=== PATIENT | male | born 1950 | race African-American/Black ===

== ENCOUNTER 2020-04-30 05:00 | Day surgery (SDC) | payer MEDICARE, OTHER ==
[2020-04-25 14:57] VITALS: BMI 30.4
[2020-04-30 09:47] VITALS: TEMP 97.8
[2020-04-30 11:15] VITALS: BP 124/63; PULSE 63
== END 2020-04-30 11:15 | disposition home or self-care (01) ==
LOC: JASU-ENDO 05:00
PROVIDERS: ATTEND Internal Medicine Gastroenterology
PROC: 0DJD8ZZ Inspection of Lower Intestinal Tract, Via Natural or Artificial Opening Endoscopic (ICD-10-PCS; principal; 2020-04-30 08:45)
DX: Z12.11 Encounter for screening for malignant neoplasm of colon (principal); K57.30 Diverticulosis of large intestine without perforation or abscess without bleeding; I12.9 Hypertensive chronic kidney disease with stage 1 through stage 4 chronic kidney disease, or unspecified chronic kidney disease; N18.9 Chronic kidney disease, unspecified